=== PATIENT | female | born 1990 | race Caucasian/White ===

== ENCOUNTER 2016-06-14 16:33 | Emergency (ER) | payer BC ==
[2016-06-14 16:42] VITALS: BP 149/101
[2016-06-14] MEDS ORDERED: Dextrose 5%-0.9% NaCl 1,000 ML IV SCH ×2 (16:45→18:30)
--- NOTE | 2016-06-14 16:46 | EDM.PDOC ---
ED HPI ALTERED MENTAL STATUS <Nisha Ortiz - Last Filed: 06/14/16 20:13> - General Source of Information: Reports: Patient, EMS notes reviewed History Limitations: Reports: No limitations - History of Present Illness Baseline Mental Status: Reports: alert/confused Timing/Duration: Reports: Unsure Context: Reports: new/acute, found by family. Denies: change medication regime , recent infection, new trauma, drug/ETOH abuse, found by bystander, found by staff Treatments PHARMACY GRAD INTERN: Denies: oxygen, IV, narcan, tylenol <Jerome Foster - Last Filed: 06/15/16 08:22> - General Chief Complaint: Neurological Problem Stated Complaint: [facility] Time Seen by Provider: 06/14/16 16:41 - History of Present Illness INITIAL COMMENTS - FREE TEXT/NARRATIVE: 25-year-old female brought to the hospital by ambulance. Apparently she was found unresponsive in a bathtub in her own home. She was hard to arouse her difficult to arouse. The medics indicate that was empty bottle of [employer] s nearby. Patient answers questions as she wants to but is a loose of for the most part. She complains of some right-sided parietal scalp pain on palpation. She can member she may have fallen in the bathtub. I cannot smell alcohol on her breath. Pupils are equal and responsive to light and accommodation. She denies taking any medications prior to going into the bath.denies any chest pain or abdominal pain. Advise any possibility of . No previous abdominal surgery. Otherwise healthy female. Unclear who found her and who called the paramedics. (Jerome Foster) - Related Data Allergies/ADRs: Allergies No Known Allergies Allergy (Verified 07/21/14 16:11) Home Meds: Home Meds Control Med. 1 tab PO DAILY 07/21/14 [History] Iron. 1 tab PO DAILY 07/21/14 [History] Social & Family History - Tobacco Use Smoking Status *Q: Light Tobacco Smoker - Alcohol Use Days Per Week of Alcohol Use: 1 Number of Drinks Per Day: 4 Total Drinks Per Week: 4 - Recreational Drug Use Recreational Drug Use: No <Jerome Foster - Last Filed: 06/15/16 08:22> ED ROS GENERAL - Review of Systems Review Of Systems: See Below Constitutional: Denies: fever, chills, malaise, weakness, fatigue, decreased appetite, weight loss HEENT: Reports: No symptoms Respiratory: Reports: No Symptoms Cardiovascular: Reports: No symptoms Endocrine: Reports: no symptoms GI/Abdominal: Reports: No symptoms : Reports: no symptoms Musculoskeletal: Reports: no symptoms Skin: Reports: no symptoms Neurological: Reports: Confusion, Dizziness, Headache, Weakness. Denies: Numbness, Paresthesia, Pre-Existing Deficit, Seizure, Tingling Psychiatric: Reports: Other (changes of questions appropriately when she wants to. My impression is as a good deal of malingering.) Hematologic/Lymphatic: Reports: no symptoms Immunologic: Reports: no symptoms <Jerome Foster - Last Filed: 06/15/16 08:22> - Physical Exam Exam: See Below Exam Limited By: Altered mental status (she will cooperate with questions asked of her. She is vague about how how she ended up in the bathtub how long she may have been there whether she took medication before she entered the bathtub whether she's been drinking alcohol etc. I got no good answers to any of these questions.) General Appearance: no apparent distress Eye Exam: bilateral eye: normal inspection (no nystagmus.), PERRL (pupils are 6 mm each and equal no gaze palsy.) Ears: normal TMs Throat/Mouth: Normal inspection, Normal lips, Normal teeth, Normal oropharynx, Other (no sign of biting her tongue or injury to suggest a seizure.) Head Exam: scalp tenderness (along the right parietal scalp without a palpable hematoma or deformity.she did wean Sorber on palpation of this area. Raises the question of whether she could have fallen in the bathtub.) Neck: normal inspection, supple, non-tender, full range of motion. No: lymphadenopathy (L), lymphadenopathy (R) Respiratory/Chest: no respiratory distress, lungs clear, normal breath sounds, no accessory muscle use Cardiovascular: normal peripheral pulses, regular rate, rhythm, no edema, no gallop, no murmur GI/Abdominal: normal bowel sounds, soft, non tender, no organomegaly, no distention Neuro Exam (Abbreviated): alert, no motor/sensory deficits (she can move all limbs although not on command.), disoriented (timeto time and place.), other ( Babinski's are both downgoing) DTR: 2+: bicep (R), bicep (L), patella (R), patella (L) Back Exam: normal inspection, full range of motion. No: CVA tenderness (L), CVA tenderness (R) Extremities: normal inspection, normal range of motion, non-tender, no pedal edema, other (no signs of trauma to her extremities back or buttocks.) Psychiatric: flat affect Skin Exam: Warm, Dry, Intact, Normal color, No rash <Jerome Foster - Last Filed: 06/15/16 08:22> EKG INTERPRETATION EKG Date: 06/14/16 Time: 17:05 Rhythm: NSR Rate (beats/min): 84 [place]: normal P-wave: present QRS: RBBB (incomplete right bundle-branch block) ST-T: normal QT: normal <Jerome Foster - Last Filed: 06/15/16 08:22> Course <Nisha Ortiz - Last Filed: 06/14/16 20:13> <Jerome Foster - Last Filed: 06/15/16 08:22> - Vital Signs Last Recorded V/S: Last Vital Signs Temp 36.6 C 06/14/16 16:41 Pulse 98 06/14/16 16:41 Resp 12 06/14/16 16:41 BP 149/101 H 06/14/16 16:41 Pulse Ox 100 06/14/16 16:41 (Nisha Ortiz) - Orders/Labs/Meds Orders: Active Orders 24 hr Category Date Time Status Blood Glucose Check, Bedside [RC] ONETIME Care 06/14/16 16:46 Active EKG Documentation Completion [RC] STAT Care 06/14/16 16:59 Active (Nisha Ortiz) Labs: Laboratory Tests 06/14/16 06/14/16 06/14/16 Range/Units 16:55 17:04 17:04 WBC 5.02 (3.98-10.04) K/mm3 RBC 4.73 (3.98-5.22) M/mm3 Hgb 10.3 L (11.2-15.7) gm/L Hct 34.6 (34.1-44.9) % MCV 73.2 L (79.4-94.8) fl MCH 21.8 L (25.6-32.2) pg MCHC 29.8 L (32.2-35.5) g/dl RDW Std Deviation 50.3 H (36.4-46.3) fL Plt Count 230 (182-369) K/mm3 MPV 8.0 L (9.4-12.3) fl Neutrophils % (Manual) 64 H (40-60) % Band Neutrophils % 0 (0-10) % Lymphocytes % (Manual) 32 (20-40) % Atypical Lymphs % 0 % Monocytes % (Manual) 3 (2-10) % Eosinophils % (Manual) 1 (0.7-5.8) % Basophils % (Manual) 0 L (0.1-1.2) Platelet Estimate Adequate Hypochromasia 2+ moderate Microcytosis 2+ moderate RBC Morph Comment Not Reportable Sodium 145 (136-145) mEq/L Potassium 3.9 (3.5-5.1) mEq/L Chloride 109 H (98-107) mEq/L Carbon Dioxide 23 (21-32) mEq/L Anion Gap 16.9 H (5-15) BUN 12 (7-18) mg/dL Creatinine 0.7 (0.55-1.02) mg/dL Est Cr Clr Drug Dosing 100.74 mL/min Estimated GFR (MDRD) > 60 (>60) mL/min BUN/Creatinine Ratio 17.1 (14-18) Glucose 96 (74-106) mg/dL POC Glucose 83 (70-105) mg/dL Calcium 8.5 (8.5-10.1) mg/dL Total Bilirubin 0.2 (0.2-1.0) mg/dL AST 26 (15-37) U/L ALT 38 (14-59) U/L Alkaline Phosphatase 70 (46-116) U/L C-Reactive Protein 1.7 H* (<1.0) mg/dL Total Protein 7.5 (6.4-8.2) g/dl Albumin 3.9 (3.4-5.0) g/dl Globulin 3.6 gm/dL Albumin/Globulin Ratio 1.1 (1-2) Lipase (73-393) U/L HCG, Qual (NEGATIVE) Urine Color (Yellow) Urine Appearance (Clear) Urine pH (5.0-8.0) Ur Specific [place] (1.005-1.030) Urine Protein (Negative) Urine Glucose (UA) (Negative) Urine Ketones (Negative) Urine Occult Blood (Negative) Urine Nitrite (Negative) Urine Bilirubin (Negative) Urine Urobilinogen (0.2-1.0) Ur Leukocyte Esterase (Negative) Urine RBC (0-5) /hpf Urine WBC (0-5) /hpf Ur Squamous Epith Cells (0-5) /hpf Urine Bacteria (FEW) /hpf Urine Mucus (FEW) /hpf Urine Opiates Screen (NEGATIVE) Ur Buprenorphine Scrn (NEGATIVE) Ur Oxycodone Screen (NEGATIVE) Urine Methadone Screen (NEGATIVE) Ur Propoxyphene Screen (NEGATIVE) Ur Barbiturates Screen (NEGATIVE) Ur Tricyclics Screen (NEGATIVE) Ur Phencyclidine Scrn (NEGATIVE) Ur Amphetamine Screen (NEGATIVE) U Methamphetamines Scrn (NEGATIVE) U Benzodiazepines Scrn (NEGATIVE) U Cocaine Metab Screen (NEGATIVE) U Marijuana (THC) Screen (NEGATIVE) Ethyl Alcohol 0.07 (0.00) gm% 06/14/16 06/14/16 06/14/16 Range/Units 17:04 17:20 18:16 WBC (3.98-10.04) K/mm3 RBC (3.98-5.22) M/mm3 Hgb (11.2-15.7) gm/L Hct (34.1-44.9) % MCV (79.4-94.8) fl MCH (25.6-32.2) pg MCHC (32.2-35.5) g/dl RDW Std Deviation (36.4-46.3) fL Plt Count (182-369) K/mm3 MPV (9.4-12.3) fl Neutrophils % (Manual) (40-60) % Band Neutrophils % (0-10) % Lymphocytes % (Manual) (20-40) % Atypical Lymphs % % Monocytes % (Manual) (2-10) % Eosinophils % (Manual) (0.7-5.8) % Basophils % (Manual) (0.1-1.2) Platelet Estimate Hypochromasia Microcytosis RBC Morph Comment Sodium (136-145) mEq/L Potassium (3.5-5.1) mEq/L Chloride (98-107) mEq/L Carbon Dioxide (21-32) mEq/L Anion Gap (5-15) BUN (7-18) mg/dL Creatinine (0.55-1.02) mg/dL Est Cr Clr Drug Dosing mL/min Estimated GFR (MDRD) (>60) mL/min BUN/Creatinine Ratio (14-18) Glucose (74-106) mg/dL POC Glucose (70-105) mg/dL Calcium (8.5-10.1) mg/dL Total Bilirubin (0.2-1.0) mg/dL AST (15-37) U/L ALT (14-59) U/L Alkaline Phosphatase (46-116) U/L C-Reactive Protein (<1.0) mg/dL Total Protein (6.4-8.2) g/dl Albumin (3.4-5.0) g/dl Globulin gm/dL Albumin/Globulin Ratio (1-2) Lipase 82 (73-393) U/L HCG, Qual Negative (NEGATIVE) Urine Color (Yellow) Urine Appearance (Clear) Urine pH (5.0-8.0) Ur Specific [place] (1.005-1.030) Urine Protein (Negative) Urine Glucose (UA) (Negative) Urine Ketones (Negative) Urine Occult Blood (Negative) Urine Nitrite (Negative) Urine Bilirubin (Negative) Urine Urobilinogen (0.2-1.0) Ur Leukocyte Esterase (Negative) Urine RBC (0-5) /hpf Urine WBC (0-5) /hpf Ur Squamous Epith Cells (0-5) /hpf Urine Bacteria (FEW) /hpf Urine Mucus (FEW) /hpf Urine Opiates Screen Negative (NEGATIVE) Ur Buprenorphine Scrn Negative (NEGATIVE) Ur Oxycodone Screen Negative (NEGATIVE) Urine Methadone Screen Negative (NEGATIVE) Ur Propoxyphene Screen Negative (NEGATIVE) Ur Barbiturates Screen Negative (NEGATIVE) Ur Tricyclics Screen Negative (NEGATIVE) Ur Phencyclidine Scrn Negative (NEGATIVE) Ur Amphetamine Screen Negative (NEGATIVE) U Methamphetamines Scrn Negative (NEGATIVE) U Benzodiazepines Scrn Negative (NEGATIVE) U Cocaine Metab Screen Negative (NEGATIVE) U Marijuana (THC) Screen Negative (NEGATIVE) Ethyl Alcohol (0.00) gm% 06/14/16 Range/Units 19:49 WBC (3.98-10.04) K/mm3 RBC (3.98-5.22) M/mm3 Hgb (11.2-15.7) gm/L Hct (34.1-44.9) % MCV (79.4-94.8) fl MCH (25.6-32.2) pg MCHC (32.2-35.5) g/dl RDW Std Deviation (36.4-46.3) fL Plt Count (182-369) K/mm3 MPV (9.4-12.3) fl Neutrophils % (Manual) (40-60) % Band Neutrophils % (0-10) % Lymphocytes % (Manual) (20-40) % Atypical Lymphs % % Monocytes % (Manual) (2-10) % Eosinophils % (Manual) (0.7-5.8) % Basophils % (Manual) (0.1-1.2) Platelet Estimate Hypochromasia Microcytosis RBC Morph Comment Sodium (136-145) mEq/L Potassium (3.5-5.1) mEq/L Chloride (98-107) mEq/L Carbon Dioxide (21-32) mEq/L Anion Gap (5-15) BUN (7-18) mg/dL Creatinine (0.55-1.02) mg/dL Est Cr Clr Drug Dosing mL/min Estimated GFR (MDRD) (>60) mL/min BUN/Creatinine Ratio (14-18) Glucose (74-106) mg/dL POC Glucose (70-105) mg/dL Calcium (8.5-10.1) mg/dL Total Bilirubin (0.2-1.0) mg/dL AST (15-37) U/L ALT (14-59) U/L Alkaline Phosphatase (46-116) U/L C-Reactive Protein (<1.0) mg/dL Total Protein (6.4-8.2) g/dl Albumin (3.4-5.0) g/dl Globulin gm/dL Albumin/Globulin Ratio (1-2) Lipase (73-393) U/L HCG, Qual (NEGATIVE) Urine Color Light yellow (Yellow) Urine Appearance Clear (Clear) Urine pH 6.0 (5.0-8.0) Ur Specific [place] > or = 1.030 (1.005-1.030) Urine Protein Negative (Negative) Urine Glucose (UA) Trace H (Negative) Urine Ketones Trace H (Negative) Urine Occult Blood Negative (Negative) Urine Nitrite Negative (Negative) Urine Bilirubin Negative (Negative) Urine Urobilinogen 0.2 (0.2-1.0) Ur Leukocyte Esterase Negative (Negative) Urine RBC Not seen (0-5) /hpf Urine WBC 0-5 (0-5) /hpf Ur Squamous Epith Cells 10-20 H (0-5) /hpf Urine Bacteria Few (FEW) /hpf Urine Mucus Not seen (FEW) /hpf Urine Opiates Screen (NEGATIVE) Ur Buprenorphine Scrn (NEGATIVE) Ur Oxycodone Screen (NEGATIVE) Urine Methadone Screen (NEGATIVE) Ur Propoxyphene Screen (NEGATIVE) Ur Barbiturates Screen (NEGATIVE) Ur Tricyclics Screen (NEGATIVE) Ur Phencyclidine Scrn (NEGATIVE) Ur Amphetamine Screen (NEGATIVE) U Methamphetamines Scrn (NEGATIVE) U Benzodiazepines Scrn (NEGATIVE) U Cocaine Metab Screen (NEGATIVE) U Marijuana (THC) Screen (NEGATIVE) Ethyl Alcohol (0.00) gm% (Nisha Ortiz) Meds: Medications Discontinued Medications Generic Name Dose Route Start Last Admin Trade Name Peyton PRN Reason Stop Dose Admin Dextrose/Sodium Chloride 1,000 mls @ 150 mls/hr 06/14/16 16:45 06/14/16 16:48 Dextrose 5%-Normal Saline IV 150 mls/hr ASDIRECTED GRISELDA Administration Dextrose/Sodium Chloride 1,000 mls @ 999 mls/hr 06/14/16 18:30 Dextrose 5%-Normal Saline IV ASDIRECTED GRISELDA Metoclopramide HCl 7.5 mg 06/14/16 18:16 06/14/16 18:40 Reglan IVPUSH 06/14/16 18:17 7.5 mg ONETIME ONE Administration (Nisha Ortiz) - Radiology Interpretation Free Text/Narrative:: 25-year-old female brought to the ED apparently after being found unresponsive in a bathtub. Patient herself seems to be under the influence of a sedative type medication. Possibly alcohol apparently there was an empty bottle of [place] in the vicinity. However I do not smell alcohol on her breath. She has no nystagmus pupils are equal responsive and 6 mm there is no gaze palsy. Some tenderness along right parietal scalp on palpation and therefore CT head will be done because she could have fallen within the bathtub. She denies taking any medications or drugs. CT will be done after we confirm that she is not by blood testing. Her drug screen will be drawn. One view chest x- ray ECG to be done. (Jerome Foster) - Re-Assessments/Exams Free Text/Narrative Re-Assessment/Exam: 06/14/16 18:17 hCG was negative. We'll therefore go ahead with a CT scan of the head. Labs are back showing a normal white count of 5.02 with 64% neutrophils and no bands hemoglobin is low at 10.3 with a hematocrit of 34.6. MCV is 73.2 suggesting iron deficiency anemia. Chemistry shows a sodium of 145 potassium 3.9 cord 109. Anion gap is mildly elevated at 16.9. IV will be opened up to D5 normal saline at 4. CRP is mildly elevated at 1.7 blood alcohol remains at 0.07 urine drug screen is negative. ECG showed sinus rhythm at 84 per minute with an incomplete right bundle branch block pattern.Therefore without any outward signs of trauma it appears she was just partying too hard. She reported to the nurses that she partied till 6:00 in the morning. She is essentially hung or. I will give her Reglan 7.5 mg IV for nausea relief. Serum lipase ordered to make sure not missing a pancreatitis. 06/14/16 18:30CT scan of the head is within normal limits. There is no soft tissue swelling identified. No skull fractures and certainly no intracranial bleeding mass effect etc.she is essentially suffering hangover symptoms. She'll be discharged to home after she completes a liter of D5 normal saline. (Jerome Foster) Departure - Departure Time of Disposition: 20:13 <Nisha Ortiz - Last Filed: 06/14/16 20:13> - Departure Condition: fair <Jerome Foster - Last Filed: 06/15/16 08:22> - Departure Disposition: Home, Self-Care 01 Clinical Impression: Alcohol intoxication Qualifiers: Complication of substance-induced condition: uncomplicated Qualified Code(s): F10.120 - Alcohol abuse with intoxication, uncomplicated Instructions: Alcohol Intoxication, [id number] Referrals: PCP,None [Primary Care Provider] - Forms: ED Department Discharge Additional Instructions: evaluation in the emergency department after you were found unresponsive in a bathtub that home. Details of what happened to you ar a bit :fuzzy" to say the least. History suggests that you're drinking alcohol total we hours of the morning such at 6:00. Blood alcohol is still 0.07 g percent making just legal limit to drive a motor vehicle.urine drug screen was negative. CT of the head was done because you complained of some pain on the right parietal scalp and it is worrisome that he may have fallen in the bathtub. No sign of skull fracture or intracranial bleeding identified on CT of the head. Lab work revealed no other major metabolic abnormalities other than being dehydrated from not eating recently and from alcohol overuse. You are anemic it appears the major component of this is iron deficiency anemia. Hemoglobin today is 10.3. Normal is around 14. Strongly suggest getting on a vitamin with iron supplement such as a vitamin at least daily for the next 3-6 months to restore your hemoglobin to normal. Suggest followup hemoglobin be carried out with your personal physician in 6-8 weeks' time .
[2016-06-14] MEDS ORDERED: Metoclopramide 10 MG/2 ML SDV IVPUSH ONE (18:16)
--- NOTE | 2016-06-14 18:33 | CT ---
Head CT Technique: Multiple axial sections through the brain were obtained. Intravenous contrast was not utilized. Comparison: No previous intracranial imaging. Findings: Ventricles along with basal cisterns and sulci over the convexities are within normal limits for the patient's age. Minimal low-density area is seen within the left temporal region most likely due to prominent perivascular space. No other abnormal parenchymal densities are seen. No evidence of intracranial hemorrhage. No midline shift or mass effect is seen. Bone window settings were reviewed which shows no discrete calvarial abnormality. Mastoid sinuses and middle ear cavities are clear. Mild mucosal thickening noted to the right side of the sphenoid sinus. Other visualized sinuses are clear. Impression: 1. Mild mucosal thickening within the right side of the sphenoid sinus which is likely incidental. 2. No acute intracranial abnormality is appreciated. Diagnostic code #2
== END 2016-06-14 20:05 | disposition home or self-care (01) ==
LOC: JD.ED 16:33
DX: F10.129 Alcohol abuse with intoxication, unspecified (principal); Y90.0 Blood alcohol level of less than 20 mg/100 ml; F17.200 Nicotine dependence, unspecified, uncomplicated
CPT/HCPCS: 36415; 70450; 80053; 80306; 81001; 82962; 83690; 84703; 85025; 86140; 93005; 96361; 96374; 99285; G0480; J2765; J7042; 99284

== ENCOUNTER 2020-04-23 06:08 | Emergency (ER) | payer BC ==
[2020-04-23] MEDS ORDERED: Sodium Chloride 0.9% 10 ML Syringe FLUSH PRN (07:01)
[2020-04-23] MEDS ORDERED: Ondansetron 4 MG/2 ML SDV IVPUSH ONE (07:01)
[2020-04-23] MEDS ORDERED: Metoprolol Succinate 50 MG Tab.ER PO ONE (07:03)
--- NOTE | 2020-04-23 07:09 | EDM.PDOC ---
ED HPI GENERAL MEDICAL PROBLEM - General Chief Complaint: Cardiovascular Problem Stated Complaint: RAPID HEART RATE Time Seen by Provider: 04/23/20 06:56 Source of Information: Reports: Patient History Limitations: Reports: No Limitations - History of Present Illness INITIAL COMMENTS - FREE TEXT/NARRATIVE: The patient presents with a fast heart rate, nausea and vomiting. She said this past week she has not felt right. She feels like she is a little dehydrated and nauseated. This morning she woke up and her heart was racing and then she was nauseated and vomited twice. She has a history of a fast heart rate and was on metoprolol. She ran out about a year ago and did not need any more. She did see cardiology and no real reason was found for her tachycardia. The car diologist moved and she did not have any more refills. She has no history of thyroid problems. She has no chest pain but she is short of breath right now. She has no fever, chills, cough, or abdominal pain. Onset: Gradual Duration: Hour(s): Severity: Moderate Improves with: Reports: None Worsens with: Reports: None Associated Symptoms: Reports: Nausea/Vomiting, Shortness of Breath. Denies: Chest Pain, Cough, Fever/Chills, Headaches - Related Data Allergies Allergy/AdvReac Type Severity Reaction Status Date / Time No Known Allergies Allergy Verified 04/23/20 06:34 Home Meds: Home Meds Control Med. 1 tab PO DAILY 07/21/14 [History] Iron. 1 tab PO DAILY 07/21/14 [History] LORazepam [Ativan] 1 mg PO DAILY #18 tablet 04/23/20 [Rx] Ondansetron [Zofran ODT] 4 mg PO Q6H PRN #20 tab.dis 04/23/20 [Rx] Past Medical History - Past Health History Medical/Surgical History: Denies Medical/Surgical History Cardiovascular History: Reports: Other (See Below) Other Cardiovascular History: tachycardia Psychiatric History: Reports: Anxiety, Depression Hematologic History: Reports: Anemia, Iron Deficiency, Other (See Below) Other Hematologic History: Fe Infusion Social & Family History - Tobacco Use Tobacco Use Status *Q: Never Tobacco User - Caffeine Use Caffeine Use: Reports: Coffee - Alcohol Use Date of Last Drink: 04/22/20 - Recreational Drug Use Recreational Drug Use: No ED ROS GENERAL - Review of Systems Review Of Systems: See Below Constitutional: Reports: No Symptoms HEENT: Reports: No Symptoms Respiratory: Reports: Shortness of Breath. Denies: Cough Cardiovascular: Reports: No Symptoms Endocrine: Reports: No Symptoms GI/Abdominal: Reports: Nausea, Vomiting. Denies: Abdominal Pain : Reports: No Symptoms Musculoskeletal: Reports: No Symptoms ED EXAM, GENERAL - Physical Exam Exam: See Below Exam Limited By: No Limitations General Appearance: Alert, No Apparent Distress Ears: Normal External Exam Nose: Normal Inspection Head: Atraumatic, Normocephalic Neck: Normal Inspection Respiratory/Chest: No Respiratory Distress, Lungs Clear, Normal Breath Sounds Cardiovascular: No Edema, No Rub, Tachycardia GI/Abdominal: Soft, Non-Tender, No Organomegaly, No Mass Extremities: Normal Inspection #1 Interpretation EKG Date: 04/23/20 Time: 06:19 Rhythm: Other (sinus tachycardia) Rate (Beats/Min): 119 Cullen: Normal P-Wave: Present QRS: Normal ST-T: Normal QT: Normal Course - Vital Signs Last Recorded V/S: Last Vital Signs Temp 97.1 F 04/23/20 06:22 Pulse 114 H 04/23/20 07:11 Resp 20 04/23/20 06:22 BP 136/92 H 04/23/20 07:11 Pulse Ox 100 04/23/20 06:22 - Orders/Labs/Meds Orders: Active Orders 24 hr Category Date Time Status Cardiac Monitoring [RC] . DIRECTED Care 04/23/20 07:01 Active EKG 12 Lead [EKG Documentation Completion] [RC] ROUTINE Care 04/23/20 06:19 Active Peripheral IV Care [RC] . DIRECTED Care 04/23/20 07:02 Active Chest 1V Frontal [CR] Stat Exams 04/23/20 07:02 Taken THYROXINE (T4) [REF] Stat Lab 04/23/20 06:28 Received Sodium Chloride 0.9% [Normal Saline] 1,000 ml Med 04/23/20 07:15 Active IV .BOLUS Sodium Chloride 0.9% [Saline Flush] Med 04/23/20 07:01 Active 10 ml FLUSH ASDIRECTED PRN ED Antiemetic Medication Reflex [OM.PC] Stat Oth 04/23/20 07:02 Ordered Peripheral IV Insertion Adult [OM.PC] Stat Oth 04/23/20 07:01 Ordered Medication Orders Sodium Chloride (Normal Saline) 1,000 mls @ 1,000 mls/hr IV .BOLUS GRISELDA Last Admin: 04/23/20 07:13 Dose: 1,000 mls/hr Documented by: JESSIE Sodium Chloride (Saline Flush) 10 ml FLUSH ASDIRECTED PRN PRN Reason: Keep Vein Open Last Admin: 04/23/20 07:12 Dose: 10 ml Documented by: JESSIE Labs: Laboratory Tests 04/23/20 04/23/20 04/23/20 Range/Units 06:28 06:28 06:28 WBC 4.28 (3.98-10.04) K/mm3 RBC 5.40 H (3.98-5.22) M/mm3 Hgb 9.9 L (11.2-15.7) gm/dl Hct 36.5 (34.1-44.9) % MCV 67.6 L D (79.4-94.8) fl MCH 18.3 L (25.6-32.2) pg MCHC 27.1 L (32.2-35.5) g/dl RDW Std Deviation 56.5 H (36.4-46.3) fL Plt Count 197 (182-369) K/mm3 MPV 8.1 L (9.4-12.3) fl Neut % (Auto) 57.5 (34.0-71.1) % Lymph % (Auto) 29.9 (19.3-51.7) % [place] % (Auto) 10.3 (4.7-12.5) % Eos % (Auto) 1.6 (0.7-5.8) Baso % (Auto) 0.5 (0.1-1.2) % Neut # (Auto) 2.46 (1.56-6.13) K/mm3 Lymph # (Auto) 1.28 (1.18-3.74) K/mm3 [place] # (Auto) 0.44 H (0.24-0.36) K/mm3 Eos # (Auto) 0.07 (0.04-0.36) K/mm3 Baso # (Auto) 0.02 (0.01-0.08) K/mm3 Manual Slide Review Abnormal smear D-Dimer, Quantitative 0.40 (0.19-0.50) mg/L Sodium 141 (136-145) mEq/L Potassium 3.4 L (3.5-5.1) mEq/L Chloride 100 (98-107) mEq/L Carbon Dioxide 22 (21-32) mEq/L Anion Gap 22.4 H (5-15) BUN 12 (7-18) mg/dL Creatinine 0.9 (0.55-1.02) mg/dL Est Cr Clr Drug Dosing 75.61 mL/min Estimated GFR (MDRD) > 60 (>60) mL/min BUN/Creatinine Ratio 13.3 L (14-18) Glucose 110 H (74-106) mg/dL Calcium 9.3 (8.5-10.1) mg/dL Magnesium 1.9 (1.8-2.4) mg/dl Total Bilirubin 0.5 (0.2-1.0) mg/dL AST 177 H (15-37) U/L ALT 156 H (14-59) U/L Alkaline Phosphatase 80 (46-116) U/L Troponin I < 0.017 (0.00-0.056) ng/mL Total Protein 9.6 H (6.4-8.2) g/dl Albumin 4.2 (3.4-5.0) g/dl Globulin 5.4 gm/dL Albumin/Globulin Ratio 0.8 L (1-2) TSH 3rd Generation 3.592 (0.358-3.74) uIU/mL HCG, Qual (NEGATIVE) Ethyl Alcohol (0.00) gm% 04/23/20 04/23/20 Range/Units 06:28 08:45 WBC (3.98-10.04) K/mm3 RBC (3.98-5.22) M/mm3 Hgb (11.2-15.7) gm/dl Hct (34.1-44.9) % MCV (79.4-94.8) fl MCH (25.6-32.2) pg MCHC (32.2-35.5) g/dl RDW Std Deviation (36.4-46.3) fL Plt Count (182-369) K/mm3 MPV (9.4-12.3) fl Neut % (Auto) (34.0-71.1) % Lymph % (Auto) (19.3-51.7) % [place] % (Auto) (4.7-12.5) % Eos % (Auto) (0.7-5.8) Baso % (Auto) (0.1-1.2) % Neut # (Auto) (1.56-6.13) K/mm3 Lymph # (Auto) (1.18-3.74) K/mm3 [place] # (Auto) (0.24-0.36) K/mm3 Eos # (Auto) (0.04-0.36) K/mm3 Baso # (Auto) (0.01-0.08) K/mm3 Manual Slide Review D-Dimer, Quantitative (0.19-0.50) mg/L Sodium (136-145) mEq/L Potassium (3.5-5.1) mEq/L Chloride (98-107) mEq/L Carbon Dioxide (21-32) mEq/L Anion Gap (5-15) BUN (7-18) mg/dL Creatinine (0.55-1.02) mg/dL Est Cr Clr Drug Dosing mL/min Estimated GFR (MDRD) (>60) mL/min BUN/Creatinine Ratio (14-18) Glucose (74-106) mg/dL Calcium (8.5-10.1) mg/dL Magnesium (1.8-2.4) mg/dl Total Bilirubin (0.2-1.0) mg/dL AST (15-37) U/L ALT (14-59) U/L Alkaline Phosphatase (46-116) U/L Troponin I (0.00-0.056) ng/mL Total Protein (6.4-8.2) g/dl Albumin (3.4-5.0) g/dl Globulin gm/dL Albumin/Globulin Ratio (1-2) TSH 3rd Generation (0.358-3.74) uIU/mL HCG, Qual Negative (NEGATIVE) Ethyl Alcohol 0.13 (0.00) gm% Meds: Medications Generic Name Dose Route Start Last Admin Trade Name Freq PRN Reason Stop Dose Admin Sodium Chloride 1,000 mls @ 1,000 mls/hr 04/23/20 07:15 04/23/20 07:13 Normal Saline IV 1,000 mls/hr .BOLUS GRISELDA Administration Sodium Chloride 10 ml 04/23/20 07:01 04/23/20 07:12 Saline Flush FLUSH 10 ml ASDIRECTED PRN Administration Keep Vein Open Discontinued Medications Generic Name Dose Route Start Last Admin Trade Name Peyton PRN Reason Stop Dose Admin Diphenhydramine HCl 50 mg 04/23/20 08:08 04/23/20 08:15 Benadryl IVPUSH 04/23/20 08:09 50 mg ONETIME ONE Administration Lactated Ringer's 1,000 mls @ 1,000 mls/hr 04/23/20 08:44 04/23/20 08:58 Ringers, Lactated IV 04/23/20 09:43 1,000 mls/hr .BOLUS ONE Administration Lorazepam 1 mg 04/23/20 08:45 04/23/20 08:58 Ativan IVPUSH 04/23/20 08:46 1 mg ONETIME ONE Administration Metoclopramide HCl 10 mg 04/23/20 08:08 04/23/20 08:16 Reglan IVPUSH 04/23/20 08:09 10 mg ONETIME ONE Administration Metoprolol Succinate 50 mg 04/23/20 07:03 04/23/20 07:11 Toprol Xl PO 04/23/20 07:04 50 mg ONETIME ONE Administration Ondansetron HCl 4 mg 04/23/20 07:01 04/23/20 07:11 Zofran IVPUSH 04/23/20 07:02 4 mg ONETIME ONE Administration - Re-Assessments/Exams Free Text/Narrative Re-Assessment/Exam: 04/23/20 07:08 I ordered an IV NS 1L bolus, zofran 4mg IV, metoprolol 50mg PO, EKG, CXR and labs. Her EKG shows a sinus tachycardia with no acute changes. 04/23/20 09:02 Her Hgb was low at 9.9. In 2018 it was 9.6. Her D-dimer was negative. Her K was low at 3.4. Her anion gap was elevated at 22.4. Her glucose was 110. Her AST was elevated at 177. Her ALT was elevated at 156. They were both elevated in 2018 but not this high. Her troponin, TSH and HCG were all negative. She had more nausea. I ordered reglan 10mg IV and benadryl 50mg IV. That did help. The patient tells my nurse she usually drinks 3 large alcoholic drinks daily and she has been trying to cut back. She had one drink last night. This would explain her symptoms and her elevated liver enzymes. I will give her another liter of fluid and some ativan 1mg IV. 04/23/20 09:48 I checked a blood alcohol and it was elevated at 0.13. She is feeling better now. I will give her some ativan and some zofran to help come off the alcohol and I will refer her to [facility]. Departure - Departure Time of Disposition: 09:50 Disposition: Home, Self-Care 01 Condition: Good Clinical Impression: Elevated liver enzymes Alcohol intoxication Qualifiers: Complication of substance-induced condition: uncomplicated Qualified Code(s): F10.120 - Alcohol abuse with intoxication, uncomplicated Prescriptions: LORazepam [Ativan] 1 mg PO DAILY #18 tablet Ondansetron [Zofran ODT] 4 mg PO Q6H PRN #20 tab.dis PRN Reason: Nausea\vomiting Referrals: PCP,None [Primary Care Provider] - Manju Prado MD [Physician] - 1 Week Forms: ED Department Discharge, ED Return to Work/School Form Additional Instructions: Drink plenty of fluids such as water, powerade, gatorade. Take the ativan 3 times per day for 3 days then 2 times per day for 3 days and then at night for 3 days. That should help with withdrawal symptoms. Take the zofran every 6 hours as needed for nausea or vomiting. Follow up with [facility] at . They can help you stop drinking. Your drinking is affecting your liver. Have your liver enzymes rechecked within a couple weeks. Sepsis Event Note (ED) - Evaluation Sepsis Screening Result: No Definite Risk - Focused Exam Vital Signs: Vital Signs Temp Pulse Pulse Resp BP BP Pulse Ox 04/23/20 07:11 114 H 136/92 H 04/23/20 06:22 97.1 F 123 H 20 151/99 H 100 - My Orders Last 24 Hours: My Active Orders 04/23/20 06:19 EKG 12 Lead [EKG Documentation Completion] [RC] ROUTINE 04/23/20 06:28 THYROXINE (T4) [REF] Stat 04/23/20 07:01 Cardiac Monitoring [RC] . DIRECTED Sodium Chloride 0.9% [Saline Flush] 10 ml FLUSH ASDIRECTED PRN Peripheral IV Insertion Adult [OM.PC] Stat 04/23/20 07:02 Peripheral IV Care [RC] . DIRECTED Chest 1V Frontal [CR] Stat ED Antiemetic Medication Reflex [OM.PC] Stat 04/23/20 07:15 Sodium Chloride 0.9% [Normal Saline] 1,000 ml IV .BOLUS - Assessment/Plan Last 24 Hours: My Active Orders 04/23/20 06:19 EKG 12 Lead [EKG Documentation Completion] [RC] ROUTINE 04/23/20 06:28 THYROXINE (T4) [REF] Stat 04/23/20 07:01 Cardiac Monitoring [RC] . DIRECTED Sodium Chloride 0.9% [Saline Flush] 10 ml FLUSH ASDIRECTED PRN Peripheral IV Insertion Adult [OM.PC] Stat 04/23/20 07:02 Peripheral IV Care [RC] . DIRECTED Chest 1V Frontal [CR] Stat ED Antiemetic Medication Reflex [OM.PC] Stat 04/23/20 07:15 Sodium Chloride 0.9% [Normal Saline] 1,000 ml IV .BOLUS
[2020-04-23] MEDS ORDERED: Sodium Chloride 0.9% 1,000 ML IV SCH (07:15)
[2020-04-23] MEDS ORDERED: diphenhydrAMINE 50 MG/ML SDV IVPUSH ONE (08:08)
[2020-04-23] MEDS ORDERED: Metoclopramide 10 MG/2 ML SDV IVPUSH ONE (08:08)
[2020-04-23] MEDS ORDERED: Lactated Ringers 1,000 ML IV ONE (08:44)
[2020-04-23] MEDS ORDERED: LORazepam 2 MG/ML SDV IVPUSH ONE (08:45)
[2020-04-23 10:18] VITALS: BP 130/90
[2020-04-23 10:20] VITALS: PULSE 89
--- NOTE | 2020-04-24 08:51 | CR ---
Chest: Portable view of the chest was obtained. Comparison: Prior chest x-ray of 07/21/14. Heart size and mediastinum are within normal limits. Lungs are clear with no acute parenchymal change. No discrete bony abnormality is appreciated. Impression: 1. Nothing acute is appreciated on portable chest x-ray. Diagnostic code #1
== END 2020-04-23 10:05 | disposition home or self-care (01) ==
LOC: JD.ED 06:08
DX: F10.120 Alcohol abuse with intoxication, uncomplicated (principal); R74.8 Abnormal levels of other serum enzymes; R00.0 Tachycardia, unspecified; D50.9 Iron deficiency anemia, unspecified; Y90.0 Blood alcohol level of less than 20 mg/100 ml; Z79.899 Other long term (current) drug therapy
CPT/HCPCS: 71045; 80053; 80179; 83735; 84436; 84443; 84484; 84703; 85025; 85379; 93005; 96374; 96375; 99285; A9270; J1200; J2060; J2405; J2765; J7030; J7120; 36415; 93010; 99284

== ENCOUNTER 2022-01-13 15:08 | Emergency (ER) | payer BC ==
[2022-01-13 15:27] VITALS: BP 140/79; PULSE 130
[2022-01-13] MEDS ORDERED: Sodium Chloride 0.9% 10 ML Syringe FLUSH PRN (15:29)
[2022-01-13] MEDS ORDERED: Sodium Chloride 0.9% 1,000 ML IV STA (16:36)
[2022-01-13 16:52] LABS: ESTIMATED GFR 87 mL/min (>60)
== END 2022-01-13 19:48 | disposition home or self-care (01) ==
LOC: JD.ED 15:08
DX: N92.0 Excessive and frequent menstruation with regular cycle (principal); Z79.899 Other long term (current) drug therapy
CPT/HCPCS: 36415; 76830; 80053; 84702; 85025; 86140; 86900; 86901; 96360; 99284; A9270; J3490; J7030